=== PATIENT | male | born 1950 | race Caucasian/White ===

== ENCOUNTER 2017-09-10 15:48 | Inpatient (IN) | payer MEDICARE, OTHER ==
--- NOTE | 2017-09-10 16:18 | ED Physician Chart ---
ED Chief Complaint/HPI - Patient Information Date Seen:: 09/10/17 Time Seen:: 16:05 Chief Complaint:: combative behavior History of Present Illness:: Patient has reportedly been exhibiting combative behavior and striking out at his long term facility Historian:: Patient Review:: Nurse's Note Reviewed, Transfer documents Reviewed ED Review of Systems - Review of Systems General/Constitutional: No fever, No chills, No weight loss, No weakness, No diaphoresis, No edema, No loss of appetite Skin: No skin lesions, No rash, No bruising Head: No headache, No light-headedness Eyes: No loss of vision, No pain, No diplopia ENT: No earache, No nasal drainage, No sore throat, No tinnitus Neck: No neck pain, No swelling, No thyromegaly, No stiffness, No mass noted Cardio Vascular: No chest pain, No palpitations, No PND, No orthopnea, No edema Pulmonary: No SOB, No cough, No sputum, No wheezing GI: No nausea, No vomiting, No diarrhea, No pain, No melena, No hematochezia, No constipation, No hematemesis G/U: No dysuria, No frequency, No hematuria Musculoskeletal: No bone or joint pain, No back pain, No muscle pain Endocrine: No polyuria, No polydipsia Psychiatric: Prior psych history Hematopoietic: No bruising, No lymphadenopathy Allergic/Immuno: No urticaria, No angioedema Neurological: No syncope, No focal symptoms, No weakness, No paresthesia, No headache, No seizure, No dizziness, No confusion, No vertigo ED Past Medical History - Past Medical History Past Medical History: DM, Other (dysphagia; polyneuropathy chronic renal disease ; history of alcohol abuse; hearing-impaired) Family History: Other (unobtainable) Social History: Smoker, Care Facility, Other (smokes 1 pack of cigarettes a day) Surgical History: other (unobtainable) Medication: Reviewed Family Medical History - Family Member Mother History Unknown: Yes Ethnicity: Non- Living Status: Unknown ED Physical Exam - Physical Examination General/Constitutional: Awake, Well-developed, well-nourished, Alert, No distress, GCS 15, Non-toxic appearing, Ambulatory Other Gen/Cons comments:: Hearing impaired; confused; does not know the year Head: Atraumatic Eyes: Lids, conjuctiva normal, PERRL, EOMI Skin: Nl inspection, No rash, No skin lesions, No ecchymosis, Well hydrated, No lymphadenopathy ENMT: External ears, nose nl, Nasal exam nl Other ENMT comments:: Poor dental hygiene; some teeth missing Neck: Nontender, Full ROM w/o pain, No JVD, No nuchal rigidity, No bruit, No mass, No stridor Respiratory: Nl effort/Exclusion, Clear to Auscultation, No Wheeze/Rhonchi/Rales Cardio Vascular: RRR, No murmur, gallop, rubs, NL S1 S2 GI: No tenderness/rebounding/guarding, No organomegaly, No hernia, Normal BS's, Nondistended, No mass/bruits, No McBurney tenderness : No CVA tenderness Extremities: No tenderness or effusion, Full ROM, normal strength in all extremities, No edema, Normal digits & nails Neuro/Psych: Alert/oriented, DTR's symmetric, Normal sensory exam, Normal motor strength, Judgement/insight normal, Mood normal, Normal gait, No focal deficits Misc: Normal back, No paraspinal tenderness ED Labs/Radiology/EKG Results - Lab Results Results: Laboratory Results - last 24 hr 09/10/17 09/10/17 16:22 16:22 WBC 7.8 RBC 5.05 Hgb 14.5 Hct 43.0 MCV 85.0 MCH 28.7 MCHC Differential 33.7 RDW 13.1 Plt Count 187 MPV 7.8 Neutrophils % 53.7 Lymphocytes % 36.3 Monocytes % 7.8 Eosinophils % 1.7 Basophils % 0.5 Sodium 140 Potassium 4.1 Chloride 106 Carbon Dioxide 27.1 Anion Gap 11.0 BUN 14 Creatinine 1.0 Est GFR ( Amer) > 60.0 Est GFR (Non-Af Amer) > 60.0 BUN/Creatinine Ratio 14.0 Glucose 83 Calcium 9.6 Total Bilirubin 0.6 AST 13 ALT 4 L Alkaline Phosphatase 35 Total Protein 6.6 Albumin 3.9 L Globulin 2.7 Albumin/Globulin Ratio 1.4 Triglycerides 133 Cholesterol 172 LDL Cholesterol Direct 112 HDL Cholesterol 46 - EKG Interpretations Rate & Rhythm: normal sinus rhythm with a rate of 63; no ST or T changes ED Septic Shock - . Is Septic Shock (SBP<90, OR Lactate>4 mmol\L) present?: No ED Reassessment (Disposition) - Reassessment Reassessment Condition:: Unchanged - Diagnosis Diagnosis:: Increased agitation - Patient Disposition Admitted to:: [facility] Admitting Medical Physician:: Rio Burris Admitting Psych Physician:: Loulou Villalpando Condition at Disposition:: Stable, Unchanged
[2017-09-10 16:32] LABS: % BASOPHILS 0.5 % (0.0-2.0); % EOSINOPHILS 1.7 % (0.0-5.0); % LYMPHOCYTES 36.3 % (20.0-50.0); % MONOCYTES 7.8 % (2.0-10.0); % NEUTROPHILS 53.7 % (40.0-80.0); EOSINOPHILE ABSOLUTE 0.1 Th/cmm (0.1-0.4); HEMOGLOBIN 14.5 gm/dL (12-16); LYMPHOCYTE ABSOLUTE 2.8 Th/cmm (1.5-3.0); MEAN CORPUSCULAR HEMOGLOBIN 28.7 pg (27.0-31.0); MEAN CORPUSCULAR HGB CONC 33.7 pg (28.0-36.0); MEAN PLATELET VOLUME 7.8 fl; MONOCYTE ABSOLUTE 0.6 Th/cmm (0.3-1.0); NEUTROPHILE ABSOLUTE 4.3 Th/cmm (1.8-8.0); PLATELET COUNT 187 Th/cmm (150-400); RED BLOOD COUNT 5.05 Mil/cmm (3.80-5.80); RED CELL DISTRIBUTION WIDTH 13.1 % (11.5-20.0); WHITE BLOOD COUNT 7.8 Th/cmm (4.8-10.8)
[2017-09-10 16:50] LABS: ALB/GLOB RATIO 1.4 (1.0-1.8); ALBUMIN 3.9 gm/dL (4.2-5.5); ALKALINE PHOSPHATASE 35 U/L (34-104); BILIRUBIN,TOTAL 0.6 mg/dL (0.3-1.0); BUN - UREA NITROGEN 14 mg/dL (7-25); CALCIUM SERUM 9.6 mg/dL (8.6-10.3); CARBON DIOXIDE 27.1 mEq/L (21.0-31.0); CHLORIDE 106 mEq/L (98-107); CHOLESTEROL 172 mg/dL (<200); GFR AFRICAN-AMERICAN > 60.0 ml/min (>90); GFR NON AFRICAN-AMERICAN > 60.0 ml/min; GLUCOSE 83 mg/dL (70-105); HDL -HIGH DENSITY LIPOPROTEIN 46 mg/dL (23-92); POTASSIUM SERUM 4.1 mEq/L (3.5-5.1); SGOT 13 U/L (13-39); SGPT/ALT 4 U/L (7-52); SODIUM SERUM 140 mEq/L (136-145); TOTAL PROTEIN,SERUM 6.6 gm/dL (6.0-8.3); TRIGLYCERIDES 133 mg/dL (<150)
[2017-09-10 17:18] LABS: A1C % 4.9 % (4.0-6.0)
[2017-09-10 18:15] VITALS: BP 123/84
[2017-09-10] MEDS ORDERED: Maalox 30 mL Cup PO PRN (21:47)
[2017-09-10] MEDS ORDERED: Magnesium Hydroxide (MOM) 30 mL UDC PO PRN (21:47)
[2017-09-10] MEDS ORDERED: Acetaminophen 500 MG TAB PO PRN (21:56)
[2017-09-11] MEDS: Multivitamin Tab PO SCH (08:39)
[2017-09-11] MEDS ORDERED: Non-Formulary Item 1 EA (Apixaban [Eliquis] 2.5 MG) PO SCH (09:00)
[2017-09-11] MEDS ORDERED: ALFUZOSIN HCL 10 MG PO SCH (09:00)
[2017-09-11] MEDS: Diltiazem 30 mg Tab PO SCH ×2 (09:13→16:30)
--- NOTE | 2017-09-11 11:21 | History & Physical ---
ADMIT DATE: 09/10/2017 CHIEF COMPLAINT: Psychosis, worsening mood. HISTORY OF PRESENT ILLNESS: The patient is a pleasant, but confused 67-year-old male. He has history of mood disorder along with Alzheimer dementia for the last few days. He has been experiencing worsening weakness, combative behavior, and overall decline as well. He was also striking out at the [facility] staff. He was sent to the hospital, to be worked up and treated in the acute psychiatric unit of the hospital. PAST MEDICAL HISTORY: Significant for BPH, AFib, Alzheimer dementia. SOCIAL HISTORY: He smokes about a pack and half a day for at least 30-40 years. He has at least a [id number] history. Denies any alcohol or drug abuse. FAMILY HISTORY: Noncontributory. ALLERGIES: No known drug allergies. SURGICAL HISTORY: No recent major surgeries. MEDICATIONS: assisted medications reviewed. REVIEW OF SYSTEMS: GENERAL: Positive for recent fatigue and overall decline. HEENT: No recent head trauma or change in vision, taste, hearing, or smell. Oral: No recent pain or discharge. PSYCHIATRIC: Positive for psychosis and violent behavior towards the staff. NEUROLOGIC: Positive for worsening overall memory and decline along with confusion and worsening memory. ABDOMEN: No recent pain or distension. SKIN: No recent rashes. MUSCULOSKELETAL: No history of DJD recent falls. RESPIRATORY: He is a chronic smoker; however, no cough or congestion. GENITOURINARY: Denies increased urinary frequency. He does have history of BPH. PHYSICAL EXAMINATION: VITAL SIGNS: Temperature 97.8 degrees, heart rate is 74, respirations 18, blood pressure 113/74. Currently, no pain. GENERAL: No acute distress, awake, pleasant, alert to name. He knows he is in the hospital. HEENT: No acute issues. NECK: Trachea is midline. CARDIOVASCULAR: Regular rate and rhythm. RESPIRATORY: Decreased breath sounds bilaterally. He has mild cough. ABDOMEN: Nontender, nondistended. EXTREMITIES: No edema. PSYCHIATRIC: He has labile mood. Currently, he is calm. NEUROLOGIC: No evidence of acute stroke or seizure activity. LABORATORY DATA: White count is 7.8, hemoglobin is 14.5, platelet count 187,000. Sodium 140, potassium 4.1, chloride 106, bicarbonate 27.1, BUN 14, creatinine is 1, AST is 13, ALT is 4, albumin is 3.9. ASSESSMENT: 1. Metabolic encephalopathy. 2. Benign prostatic hypertrophy. 3. Atrial fibrillation. 4. Mild malnutrition. 5. Tobacco dependence. 6. Dementia, Alzheimer's type with exacerbation. PLAN: All labs have been reviewed. I have discussed tobacco cessation with the patient. He is currently not interested in a patch. He is allowed to 4 cigarettes a day. Continue to monitor for any urinary retention. He has no pain right now. He is walking without any assistance. He will need inpatient psychiatric care. I will follow up as needed. JOB# [id number]
--- NOTE | 2017-09-11 21:46 | Psychosocial Evaluation ---
DATE OF SERVICE: PSYCHIATRIC INITIAL EVALUATION AND MENTAL STATUS EXAM PATIENT'S AGE: 67. SEX: Male. PHYSICIAN: Loulou Villalpando MD, MPH. CHIEF COMPLAINT: Agitation and aggressive behavior. HISTORY OF PRESENT ILLNESS: The patient is a 67-year-old male who has been living in the [facility]. The patient has been agitated and has been aggressive towards peers and the staff and the [facility] and he has not been able to follow any of directions. The patient also has been striking out at the other patients. The patient also has been in angry and in irritable mood, seems to be confused. The patient has no reason or provoked to hurt others. He also seems to be confused and easily agitated and irritable in the hospital. PAST PSYCHIATRIC HISTORY: Noncontributory. PAST MEDICAL HISTORY: The patient has history of diabetes mellitus. Otherwise, no other medical problems. SOCIAL HISTORY: The patient lives in [facility] in the [facility]. No known alcohol or street drug use. ALLERGIES: No known allergies. MENTAL STATUS EXAMINATION: The patient appears his stated age. Difficulty hearing. Currently calm, but he also gets agitated easily with severe mood swings. The patient's thought processes are circumstantial with occasional flight of ideas. The patient denied auditory or visual hallucination, but seems to be delusional and paranoid, and at the same time, fearful and aggressive. The patient denied suicidal or homicidal ideations. The patient is alert and oriented to the situation, but not to place or person or date. Impaired immediate and recent memory, but intact remote memory and he remembered his date. Poor insight and poor judgment. ASSESSMENT: PRIMARY DIAGNOSIS: Unspecified psychosis. Rule out dementia with psychosis. SECONDARY DIAGNOSIS: Rule out dementia. MEDICAL DIAGNOSIS: Diabetes mellitus. TREATMENT PLAN: We will monitor the patient's behavior and condition closely. We will start individual as well as milieu psychotherapy. We will monitor psychotropic medications. Also, we will work on behavior . ESTIMATED LENGTH OF STAY: 5-7 days. THE PATIENT'S STRENGTHS AND WEAKNESSES: The patient's strength is not clear at this time. Weakness is poor impulse control and his aggressive behavior. AFTER DISCHARGE PLAN: The patient will return to [facility] with plans for outpatient treatment and follow up there. CRITERIA FOR DISCHARGE: Better impulse control and stabilize psychotropic medications. [facility]# [id number]
[2017-09-12] MEDS: Multivitamin Tab PO SCH (10:00)
[2017-09-12] MEDS: Diltiazem 30 mg Tab PO SCH ×2 (10:00→16:37)
--- NOTE | 2017-09-12 22:11 | Progress Notes ---
DATE: 09/12/[address] Villalpando. Case was discussed with staff of the patient, reviewed records. This is a 67-year-old male who was admitted on 09/10/2017, has been agitated, aggressive towards peers and the staff and the prison where [facility]. He has not been able to follow staff direction, striking out at other patient, has been angry, irritable, confused, easily agitated with a history of diabetes mellitus. The patient diagnosed with dementia and psychosis. When I talked to him, he was not answer any of my questions. He is confused, unpredictable, impulsive, flat affect. His current medications include aspirin 81 mg daily, Sinemet 1 tablet 4 times a day, Cardizem 30 mg twice a day, Aricept 10 mg daily, eye drop dorzolamide 1 drop in each eye 3 times a day, primidone eye drops 0.2% 1 drop in each eye 3 times a day, Dulcolax as needed, Seroquel 25 mg twice a day, multivitamin 1 tablet daily, Xarelto 20 mg daily, Ambien 5 mg at bedtime ____. He is a high risk because of dementia, on multiple medications, unpredictable, impulsive, needing redirection. We will continue outpatient group therapy, milieu therapy and adjust medications as needed. JOB# [id number]
[2017-09-13] MEDS: Multivitamin Tab PO SCH (09:31)
[2017-09-13] MEDS: Diltiazem 30 mg Tab PO SCH ×2 (09:31→17:29)
--- NOTE | 2017-09-13 21:29 | Progress Notes ---
DATE: 09/13/2017 Case was discussed with staff of the patient, reviewed records. The patient continues to be unpredictable, impulsive, ____ himself. Continues to have poor insight. Continues to be aggressive, irritable, easily agitated, needing redirection, confused. He is sleeping better, eating better. He is compliant with the medication with no side effects, no sedation, no nausea, no extrapyramidal symptoms. We will continue to work with the patient group therapy, milieu therapy, and adjust the medications as needed. JOB# [id number]
[2017-09-14] MEDS: Multivitamin Tab PO SCH (09:44)
[2017-09-14] MEDS: Diltiazem 30 mg Tab PO SCH ×2 (09:45→17:26)
[2017-09-15] MEDS: Multivitamin Tab PO SCH (09:43)
[2017-09-15] MEDS: Diltiazem 30 mg Tab PO SCH ×2 (09:49→17:16)
--- NOTE | 2017-09-15 10:36 | Progress Notes ---
DATE: 09/14/2017 Chart reviewed and the patient interviewed. Also discussed the patient's condition with the staff and reviewed records and labs. The patient seems to be calmer, but he is still unpredictable and is still having episodes of agitation and irritability. The patient also still needs lots of redirections. He also still seems to be preoccupied and in irritable and angry mood and easily agitated. Otherwise, the patient is compliant with taking his medications with no side effects of medications. ASSESSMENT: The patient is still psychotic. TREATMENT PLAN: We will continue monitoring his behavior and his condition closely. Also, continue Seroquel 25 mg twice a day and continue to follow up closely. [facility]# [id number]
--- NOTE | 2017-09-15 20:30 | Progress Notes ---
DATE: 09/15/2017 PSYCHIATRIC PROGRESS NOTE SUBJECTIVE: Chart reviewed and the patient interviewed. Also discussed the patient's condition with the staff and reviewed records and labs. The patient is still confused and forgetful. The patient also is still isolating himself and stays by himself in his room most of the time. The patient also has been sleeping a lot and last night according to staff, slept more than 11 hours. He also still gets agitated and irritable, especially when staff tries to help him with his ADLs. Otherwise, the patient is compliant with taking his medications and no side effects of medications except being sedated. ASSESSMENT: The patient is still psychotic but sedated. TREATMENT PLAN: We will continue monitoring his behavior and his condition closely. Also, we will decrease Seroquel to 12.5 mg twice a day since he seems to be sedated and sleepy and will continue to follow up. JOB# [id number]
[2017-09-16] MEDS: Diltiazem 30 mg Tab PO SCH ×2 (10:06→17:24)
[2017-09-16] MEDS: Multivitamin Tab PO SCH (10:06)
--- NOTE | 2017-09-17 01:27 | Progress Notes ---
DATE: 09/16/2017 SUBJECTIVE: Chart reviewed and the patient interviewed. Also, discussed the patient's condition with the staff and reviewed records and labs. The patient is still anxious and guarded. The patient also is suspicious and is still paranoid. Also, still has labile affect, but patient seems to be less agitated and less aggressive. ASSESSMENT: The patient is still psychotic, but seems to be less agitated. TREATMENT PLAN: We will continue to monitor his behavior and his condition closely. Also, yesterday, I decreased the Seroquel to 12.5 mg twice a day because of sedation and it seems that the patient today is less sedated. We will continue the same dose and continue to follow up closely. JOB# [id number]
[2017-09-17] MEDS: Multivitamin Tab PO SCH (08:35)
[2017-09-17] MEDS: Diltiazem 30 mg Tab PO SCH ×2 (08:36→16:38)
--- NOTE | 2017-09-17 18:17 | Progress Notes ---
DATE: SUBJECTIVE: Chart reviewed and the patient interviewed. Also discussed the patient's condition with the staff and reviewed records and labs. The patient is in irritable and angry mood, especially with his difficulty hearing. The patient wants to be left alone. The patient also still has mood swings. The patient also is angry and he is still withdrawn. Otherwise, the patient is compliant with taking his medications with no side effects of medications. ASSESSMENT: The patient is still having episodes of agitation and irritability. TREATMENT PLAN: Continue to monitor his behavior and his condition closely. Also, continue adjusting psychotropic medications and continue to follow up. The patient also continues to be more alert since decreased Seroquel to 12.5 mg twice a day and will continue to follow up. [facility]# [id number]
[2017-09-18] MEDS: Multivitamin Tab PO SCH (09:21)
[2017-09-18] MEDS: Diltiazem 30 mg Tab PO SCH ×2 (09:22→18:00)
[2017-09-19] MEDS: Diltiazem 30 mg Tab PO SCH ×2 (09:37→16:38)
[2017-09-19] MEDS: Multivitamin Tab PO SCH (09:39)
--- NOTE | 2017-09-19 11:31 | Progress Notes ---
DATE: SUBJECTIVE: Chart reviewed and the patient interviewed. Also discussed the patient's condition with the staff and reviewed records and labs. The patient is still anxious and is still isolative, especially with difficulty hearing. The patient also wants to be left alone. The patient on other hand seems to be less agitated and less aggressive and interacting more. Otherwise, the patient is compliant with taking his medications with no side effect of medications. ASSESSMENT: The patient is still confused and is still depressed. TREATMENT PLAN: Continue monitoring his behavior and his condition closely and continue to follow up. JOB# [id number]
--- NOTE | 2017-09-19 21:37 | Progress Notes ---
DATE: 09/19/2017 SUBJECTIVE: The patient was seen and evaluated. The patient's chart reviewed. This is psychiatric followup, date of service 09/19/2017, covering for Dr. Villalpando. A 67-year-old male who initially brought in here for agitated and aggressive behavior. He has been aggressive towards the peers in a [facility] and also self. Nursing staff reported that the patient continues to have mood swings and some irritability. CURRENT MEDICATIONS: The patient is on MiraLax, aspirin, Dulcolax, Cardizem, Aricept 10 mg a day, Seroquel 25 mg a day split at 12.5 b.i.d. Today on [id number] evaluation, the patient reports he started to feel a bit more calm in the last 24-48 hours. He does feel still low and confused. MENTAL STATUS EXAMINATION: Aloof, difficult hearing, mood swings, angry, irritability, withdrawn. ASSESSMENT AND PLAN: The patient, who continues to be observed to have mild mood swings, irritability, distraught and unable to formulate a safe plan outside the structured environment because of his angry mood. We will continue to monitor and evaluate with the recent initiation of medications as he continues to re-steady state without complications or side effects of medications. [facility]# [id number]
[2017-09-20] MEDS: Diltiazem 30 mg Tab PO SCH ×2 (09:55→17:50)
[2017-09-20] MEDS: Multivitamin Tab PO SCH (09:56)
--- NOTE | 2017-09-20 20:54 | Progress Notes ---
DATE: 09/20/2017 SUBJECTIVE: The patient was seen and evaluated. The patient's chart reviewed. Covering for Dr. Villalpando. Today on [id number] evaluation, the patient reports that his mood is a little bit more calm. He does report at times feeling distraught. MENTAL STATUS EXAMINATION: Difficult to hear and mood swings, anger, irritability, withdrawn. No side effects to medications. ASSESSMENT AND PLAN: This is a 67-year-old male who continues fluctuations of mood, although improvement is noted in the last 24 hours. continue much better. He continues to feel very distraught, angry, irritable and agitated. He denies medications side effects. [facility]# [id number]
[2017-09-21] MEDS: Multivitamin Tab PO SCH (08:54)
[2017-09-21] MEDS: Diltiazem 30 mg Tab PO SCH ×2 (15:54→16:37)
--- NOTE | 2017-09-21 22:31 | Progress Notes ---
DATE: 09/21/[address] Villalpando. Overnight, nursing staff reporting the patient continues to observe a fluctuation in his mood. Today on [id number] evaluation, the patient reports that his mood continues to fluctuate to be distraught. He has negative thoughts. MENTAL STATUS EXAMINATION: He continues to feel very distraught, overwhelmed. ASSESSMENT AND PLAN: A 67-year-old male with a history of fluctuation in his mood that exacerbates his mood, his feelings, and his ambivalence about his safety. We will continue increasing Seroquel to 25 mg p.o. b.i.d. to target the patient's severe affect dysregulation that exacerbates his negative thoughts about his safety. [facility]# [id number]
[2017-09-22] MEDS: Multivitamin Tab PO SCH (08:35)
[2017-09-22] MEDS: Diltiazem 30 mg Tab PO SCH ×2 (08:36→17:31)
--- NOTE | 2017-09-23 02:09 | Progress Notes ---
DATE: 09/22/2017 SUBJECTIVE: A 67-year-old male with history of agitation, aggressive behaviors, not following directions. Dr. Muir seeing the patient over the past few days, noting that the patient with fluctuating moods, remains distraught, negative thoughts, ongoing concerns about safety. Recent dose increase of medications. Nursing staff noting, the patient remains at times confused, but more pleasant, hard of hearing. No agitation, no escalation of behaviors. Tolerant of treatment. No episodes of aggression for the past few days. Medications were noted including doses and frequencies. ASSESSMENT: The patient seems to be improving, calmer, more cooperative, sleeping fairly well. Orientation x 2, sometimes oriented x 3. Some bouts of disorientation, but no noted agitation. PLAN: We will continue to monitor. Medications were reviewed. Currently on Aricept, Seroquel. We will continue to monitor. JOB# [id number]
[2017-09-23] MEDS: Multivitamin Tab PO SCH (08:53)
[2017-09-23] MEDS: Diltiazem 30 mg Tab PO SCH (08:55)
--- NOTE | 2017-09-24 05:02 | Discharge Summary ---
DATE OF DISCHARGE: 09/23/2017 PATIENT'S AGE: 67-year-old. SEX: Male. PHYSICIAN: Loulou Villalpando MD, MPH FINAL DIAGNOSIS: PRIMARY DIAGNOSIS: Unspecified psychosis. SECONDARY DIAGNOSIS: Dementia, moderate, with psychotic features. MEDICAL DIAGNOSIS: Diabetes mellitus. REASON FOR HOSPITALIZATION: The patient was admitted to the hospital from [facility] because of increased agitation and increased aggressive behavior towards peers and staff. HOSPITAL COURSE: The patient continued to be agitated and confused. The patient also continued to be in angry and irritable mood. He also was restless and anxious. The patient was given Aricept in a dose of 10 mg and was started on Seroquel and the dose of Seroquel adjusted to 25 mg twice a day. Gradually, the patient's affect was brighter. The patient was less irritable and less agitated. He interacted more with peers and with others. The patient was accepted back to [facility] and discharged there. PHYSICAL EXAM: The patient was basically within normal. The patient had no major medical problems while in the hospital and no major abnormal labs. AFTER DISCHARGE PLANS: The patient discharged from the hospital, return to [facility] with plans to follow him up there. EXPECTED OUTCOME AFTER DISCHARGE: Fair if the patient continued to take his psychotropic medications and follow up with discharge plans. [facility]# [id number]
== END 2017-09-23 15:15 | DRG 885 ==
LOC: ER 15:48 → GERO2 17:09 → ICU 09-17 14:13 → GERO2 09-17 14:23
PROVIDERS: ADMIT Psychiatry & Neurology Psychiatry; ATTEND Psychiatry & Neurology Psychiatry
DX: F29 Unspecified psychosis not due to a substance or known physiological condition (principal); G93.41 Metabolic encephalopathy; F02.81 Dementia in other diseases classified elsewhere, unspecified severity, with behavioral disturbance; E44.1 Mild protein-calorie malnutrition; Z68.1 Body mass index [BMI] 19.9 or less, adult; E11.42 Type 2 diabetes mellitus with diabetic polyneuropathy; E11.22 Type 2 diabetes mellitus with diabetic chronic kidney disease; N18.9 Chronic kidney disease, unspecified; F17.210 Nicotine dependence, cigarettes, uncomplicated; H91.93 Unspecified hearing loss, bilateral; G30.9 Alzheimer's disease, unspecified; I48.91 Unspecified atrial fibrillation; N40.0 Benign prostatic hyperplasia without lower urinary tract symptoms; F41.9 Anxiety disorder, unspecified; R45.87 Impulsiveness
CPT/HCPCS: 36415-UA; 80053-TC; 80061-TC; 83036-90; 84443-TC; 85025-TC; 86592-TC; 93005; Z7610